=== PATIENT | male | born 1930 | race Caucasian/White ===

== ENCOUNTER 2017-01-17 13:40 | Emergency (ER) | payer OTHER ==
--- NOTE | 2017-01-17 13:44 | EDPHY ---
H & P HPI/ROS: CHIEF COMPLAINT: Unresponsive. HISTORY OF PRESENT ILLNESS: The patient is an 86 year old male, brought in by EMS unresponsive. The patient's home nurse found the patient altered. He vomited and then became unresponsive. Home nurse began CPR. EMS arrived and patient had HR of 40 with little respiratory effort. He was intubated en route and placed on a pacer secondary to a weak pulses. On arrival, the patient remains unconscious, unresponsive, no respiratory effort on his own. With the pacer turned off, the patient has asystole on the monitor. The patient had a DNR. History obtained from the patient's , the patient had a history of bone cancer. Patient has an advance directive which he indicates that the patient should not be placed on a ventilator if he has no respiratory effort and should not be treated with CPR, or defibrillation if he has no cardiac activity. REVIEW OF SYSTEMS: Unobtainable because patient is unresponsive. PAST MEDICAL HISTORY: Bone cancer. SOCIAL HISTORY: . VITAL SIGNS: Reviewed by me; see NN. GENERAL: Unresponsive male, unconscious. HEENT: Head: Atraumatic, normocephalic. Face: Atraumatic. Eyes: Pupils are fixed and dilated. Oropharynx: Dry mucous membranes. Neck: Supple. CHEST: No subcutaneous air palpable. LUNGS: No respiratory effort on his own. CARDIAC: No cardiac activity auscultated. ABDOMEN: Firm. BACK: No trauma. EXTREMITIES: No movement. PULSES: No activity. NEURO: GCS 3. SKIN: Pale, dry. Portions of this note were transcribed by a medical insurance verifier. I personally performed a history, physical exam, medical decision making, and confirmed accuracy of information the transcribed note. Source: EMS Constitutional: Initial Vital Signs Heart Rate 29 L 01/17/17 13:44 Respiratory Rate 0 L 01/17/17 13:44 O2 (L/minute) 10 Medical Decision Making ED Course/Re-evaluation: The patient has a DNR. No CPR. No intubation. Further measures were stopped. Procedure: Limited transthoracic echocardiogram. A limited transthoracic echocardiogram was performed and interpreted by myself for cardiac arrest. Limited transthoracic echocardiogram: The pericardium was visualized and found to be negative for pericardial fluid. Cardiac activity was absent. The procedure was interpreted and performed by myself, Dr. Rojas. 1344: Time of . I discussed the course with the patient's . Further history from the that the patient had fallen last night and struck his head. He also has a history of an abdominal aortic aneurysm and struck his abdomen last night. Car Washer was notified. Differential Diagnosis: Differential diagnoses for the patient's symptom complex was considered including but not limited to cardiac arrest, electrolyte abnormality, intracranial hemorrhage, intra-abdominal hemorrhage, respiratory arrest. - Data Points Laboratory Results: 01/17/17 13:42 POC Hgb Pending POC Hct < 15 % L* % (42.8-50.6) POC Sodium 148 mEq/L H mEq/L (134-144) POC Potassium 3.1 mEq/L L mEq/L (3.3-5.0) POC Chloride 120 mEq/L H mEq/L (96-108) POC BUN 8 mg/dL mg/dL (7-23) POC Creatinine < 0.2 mg/dL L mg/dL (0.8-1.5) POC Glucose 64 mg/dL L mg/dL (70-100) Point of Care Test Results: 01/17/17 13:42 POC Sodium 148 H POC Potassium 3.1 L POC Chloride 120 H POC BUN 8 POC Creatinine < 0.2 L POC Glucose 64 L Departure - Departure Disposition: Clinical Impression: Cardiac arrest, Respiratory arrest Condition: Critical Referrals: Patient,NotPresent [Unknown] - As per Instructions Report Scribed for: Eloina Rojas Report Scribed by: Roxanna Tolliver Date of Report: 01/17/17 Time of Report: 13:53
[2017-01-17 14:22] VITALS: PULSE 29; RESP 0
== END 2017-01-17 13:44 | disposition expired ==
LOC: EDUNIT#
DX: I46.9 Cardiac arrest, cause unspecified (principal); Z85.830 Personal history of malignant neoplasm of bone
CPT/HCPCS: 82947-QW